=== PATIENT | male | born 1945 | race Caucasian/White ===

== ENCOUNTER → 2016-12-04 | Outpatient (REF) | payer MEDICARE ==
[~2016-12-04] MED LIST: ALBU83IN INH; AMIO200T PO; AMIO200T37 PO; AMLO10TA2 PO; ASPI325T PO; ATEN100T PO; ELIQ5TAB PO; LEVA1TAB2 PO; LISI40TAB PO; METO25TA4 PO; PRED20TA PO; PROAAER10 IN; SPIR1CAP INH; SYMB16INH INH
[2016-12-08 12:07] LABS: FREE T4 1.42 NG/DL (0.76-1.46)
== END ==
LOC: M LAB REF 13:31
PROVIDERS: ATTEND Internal Medicine Nephrology
DX: E05.80 Other thyrotoxicosis without thyrotoxic crisis or storm (principal)